=== PATIENT | female | born 1990 | race Caucasian/White ===

== ENCOUNTER 2019-03-01 08:05 | Emergency (ER) | payer OTHER ==
[~2019-03-01] VITALS: Ht 162.6 cm; Wt 54.4 kg
[~2019-03-01 08:05] MED LIST: ACYC200 PO; CBD OIL; HYDACE5 PO; IBUP600 PO; IBUP800 PO; LICORICE ROOT PO; META400 PO; ONDA4ODT MM; OXYACE5T PO; PROM25 PO; RXHYDMOR2 PO; RXMETA400 PO; St. John's Wor300 MG PO; Verotin-Gr Cap1 EACH PO; Zofran Odt4 MG SL; Zofran4 MG PO; [UNRECOGNIZED DRUG - OTHER]
[2019-03-01 09:07] LABS: BASOPHILS ABSOLUTE AUTO 0.01 K/mm3 (0.00-0.23); BASOPHILS PERCENT AUTO 1 % (0-2); EOSINOPHILS PERCENT AUTO 0 % (0-6); Hematocrit 37.5 % (33.0-51.0); Hemoglobin 12.5 g/dL (11.5-16.0); IMMATURE GRAN PERCENT AUTO 0 % (0-1); LYMPHOCYTES PERCENT AUTO 25 % (21-46); MONOCYTES ABSOLUTE AUTO 0.14 K/mm3 (0.16-1.47); MONOCYTES PERCENT AUTO 9 % (4-13); Mean Corpuscular HGB 29.9 pg (26.0-34.0); Mean Corpuscular HGB Conc 33.3 g/dL (31.5-36.5); Mean Corpuscular Volume 90 fL (80-100); Mean Platelet Volume 11.3 fL (9.1-12.4); NEUTROPHILS ABSOLUTE AUTO 1.07 K/mm3 (1.96-9.15); NEUTROPHILS PERCENT AUTO 66 % (41-73); Platelet Count 148 K/mm3 (150-400); RDW Coefficient Variation 11.8 % (11.7-14.2); RDW Standard Deviation 38.7 fL (35.1-46.3); Red Blood Cell Count 4.18 M/mm3 (3.80-5.20); White Blood Cell Count 1.62 K/mm3 (4.00-11.30)
[2019-03-01 09:25] LABS: Alanine Aminotransfer (ALT/SGP 20 U/L (12-78); Albumin, Blood 3.9 g/dL (3.4-5.0); Albumin/Globulin Ratio 1.3 (0.8-1.8); Anion Gap 8 mmol/L (6-16); Aspartate Aminotrans (AST/SGOT 18 U/L (12-37); Bilirubin, Total 0.6 mg/dL (0.1-1.0); Blood Urea Nitrogen 9 mg/dL (8-24); Bun/Creatinine Ratio 12.9 (12.0-20.0); CO2, Blood 22 mmol/L (21-32); Calcium, Blood 8.3 mg/dL (8.5-10.1); Chloride, Blood 108 mmol/L (98-108); Globulin, Blood 3.1 g/dL (2.2-4.0); Glomerular Filtration Rate >60 (60-); Glucose, Blood 84 mg/dL (70-99); Potassium, Blood 3.8 mmol/L (3.5-5.5); Sodium, Blood 138 mmol/L (136-145)
[2019-03-01 09:28] LABS: Alk Phos 52 U/L (50-136); Beta HCG, Quantitative, Serum <1 mIU/mL (0-3)
[2019-03-01] MEDS ORDERED: PROM25 PO (10:38)
== END 2019-03-01 10:45 | disposition home or self-care (01) ==
LOC: ER 08:05
PROVIDERS: Emergency Medicine
DX: R50.9 Fever, unspecified (principal); Z20.828 Contact with and (suspected) exposure to other viral communicable diseases; R11.10 Vomiting, unspecified; D72.819 Decreased white blood cell count, unspecified; F17.200 Nicotine dependence, unspecified, uncomplicated
CPT/HCPCS: 80053; 84702; 85025; 93005; 93010; 96361; 96374; 96375; 99283-25; J0780; J1885; J7120

== ENCOUNTER 2020-08-10 15:23 | Inpatient (IN) | payer OTHER ==
[~2020-08-10] VITALS: Ht 165.1 cm; Wt 82.7 kg
[2020-08-10] MEDS ORDERED: PRENATAL TABLE1 EAC2 PO (16:05)
[2020-08-10 16:48] LABS: BASOPHILS ABSOLUTE AUTO 0.03 K/mm3 (0.00-0.23); BASOPHILS PERCENT AUTO 0 % (0-2); EOSINOPHILS ABSOLUTE AUTO 0.12 K/mm3 (0.00-0.68); EOSINOPHILS PERCENT AUTO 2 % (0-6); Hematocrit 29.7 % (33.0-51.0); Hemoglobin 9.7 g/dL (11.5-16.0); IMMATURE GRAN PERCENT AUTO 1 % (0-1); LYMPHOCYTES ABSOLUTE AUTO 1.04 K/mm3 (0.84-5.20); LYMPHOCYTES PERCENT AUTO 14 % (21-46); MONOCYTES ABSOLUTE AUTO 0.69 K/mm3 (0.16-1.47); MONOCYTES PERCENT AUTO 9 % (4-13); Mean Corpuscular HGB 28.1 pg (26.0-34.0); Mean Corpuscular HGB Conc 32.7 g/dL (31.5-36.5); Mean Corpuscular Volume 86 fL (80-100); Mean Platelet Volume 10.3 fL (9.1-12.4); NEUTROPHILS ABSOLUTE AUTO 5.49 K/mm3 (1.96-9.15); NEUTROPHILS PERCENT AUTO 74 % (41-73); Platelet Count 242 K/mm3 (150-400); RDW Coefficient Variation 12.7 % (11.7-14.2); RDW Standard Deviation 39.8 fL (35.1-46.3); Red Blood Cell Count 3.45 M/mm3 (3.80-5.20); White Blood Cell Count 7.47 K/mm3 (4.00-11.30)
--- NOTE | 2020-08-11 17:25 | NUR ---
Assumed care from Kumar Guillen RN.
[2020-08-12 05:56] LABS: BASOPHILS ABSOLUTE AUTO 0.04 K/mm3 (0.00-0.23); BASOPHILS PERCENT AUTO 0 % (0-2); EOSINOPHILS ABSOLUTE AUTO 0.14 K/mm3 (0.00-0.68); EOSINOPHILS PERCENT AUTO 2 % (0-6); Hematocrit 26.5 % (33.0-51.0); Hemoglobin 8.6 g/dL (11.5-16.0); IMMATURE GRAN PERCENT AUTO 1 % (0-1); LYMPHOCYTES ABSOLUTE AUTO 0.89 K/mm3 (0.84-5.20); LYMPHOCYTES PERCENT AUTO 10 % (21-46); MONOCYTES ABSOLUTE AUTO 0.99 K/mm3 (0.16-1.47); MONOCYTES PERCENT AUTO 11 % (4-13); Mean Corpuscular HGB 28.7 pg (26.0-34.0); Mean Corpuscular HGB Conc 32.5 g/dL (31.5-36.5); Mean Corpuscular Volume 88 fL (80-100); Mean Platelet Volume 10.5 fL (9.1-12.4); NEUTROPHILS ABSOLUTE AUTO 6.78 K/mm3 (1.96-9.15); NEUTROPHILS PERCENT AUTO 76 % (41-73); Platelet Count 210 K/mm3 (150-400); RDW Coefficient Variation 12.8 % (11.7-14.2); White Blood Cell Count 8.94 K/mm3 (4.00-11.30)
[2020-08-12] MEDS ORDERED: IBU800 M1 PO (11:33)
[2020-08-12] MEDS ORDERED: Acetaminophen325 M1 PO (11:34)
--- NOTE | 2020-08-12 15:15 | NUR ---
No acute changes this shift. 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 ID bands matched w/nb and verification form. Pt denies additional questions/concerns. Pt d/c'd home to care of [facility].
== END 2020-08-12 15:20 | disposition home or self-care (01) | DRG 805 ==
LOC: OBS 15:23 → BC 15:26 → OBS 15:33 → BC 15:36
PROVIDERS: ADMIT Nurse Practitioner Obstetrics & Gynecology
PROC: 3E0P7VZ Introduction of Hormone into Female Reproductive, Via Natural or Artificial Opening (ICD-10-PCS; 2020-08-10)
PROC: 10E0XZZ Delivery of Products of Conception, External Approach (ICD-10-PCS; principal; 2020-08-11)
PROC: 0KQM0ZZ Repair Perineum Muscle, Open Approach (ICD-10-PCS; 2020-08-11)
PROC: 10907ZC Drainage of Amniotic Fluid, Therapeutic from Products of Conception, Via Natural or Artificial Opening (ICD-10-PCS; 2020-08-11)
PROC: 10H07YZ Insertion of Other Device into Products of Conception, Via Natural or Artificial Opening (ICD-10-PCS; 2020-08-11)
PROC: 00HU33Z Insertion of Infusion Device into Spinal Canal, Percutaneous Approach (ICD-10-PCS; 2020-08-11)
PROC: 3E0R3BZ Introduction of Anesthetic Agent into Spinal Canal, Percutaneous Approach (ICD-10-PCS; 2020-08-11)
DX: O36.63X0 Maternal care for excessive fetal growth, third trimester, not applicable or unspecified (principal); O99.42 Diseases of the circulatory system complicating childbirth; Z37.0 Single live birth; Z3A.39 39 weeks gestation of pregnancy; O70.1 Second degree perineal laceration during delivery; O90.81 Anemia of the puerperium; D64.9 Anemia, unspecified; I95.9 Hypotension, unspecified; Z87.891 Personal history of nicotine dependence; Z86.19 Personal history of other infectious and parasitic diseases
CPT/HCPCS: 36415; 51702; 85025; 86850; 86900; 86901; A9270; J1885; J2001; J2210; J2590; J3010; J7030; J7120

== ENCOUNTER → 2020-09-20 | Outpatient (CLI) | payer OTHER ==
[~2020-09-20] MED LIST changes: +Acetaminophen325 M1 PO; +IBU800 M1 PO; +PRENATAL TABLE1 EAC2 PO
== END | disposition home or self-care (01) ==
LOC: LAB 16:01 → LAB SHORT 16:01
PROVIDERS: Family Medicine
DX: M25.50 Pain in unspecified joint (principal)
CPT/HCPCS: 86140; 86430

== ENCOUNTER 2023-10-20 15:57 | Emergency (ER) | payer SELFPAY ==
[~2023-10-20] VITALS: Ht 165.1 cm; Wt 72.6 kg
[2023-10-20 16:04] VITALS: BP 119/87
[2023-10-20] MEDS ORDERED: Neomycin/Polymyxin/Hydrocort Otic 10 ml LEFTEAR ONE (16:55)
== END 2023-10-20 17:17 | disposition home or self-care (01) ==
LOC: ER 15:57
DX: H60.322 Hemorrhagic otitis externa, left ear (principal); H72.92 Unspecified perforation of tympanic membrane, left ear; Z87.891 Personal history of nicotine dependence; Z79.899 Other long term (current) drug therapy
CPT/HCPCS: 99282; A9270